=== PATIENT | female | born 1945 | race Native Hawaiian/Other Pacific Islander ===

== ENCOUNTER 2017-06-30 10:49 | Outpatient (CLI) | payer OTHER | END 2017-06-30 11:50 | disposition home or self-care (01) | LOC: RAD 10:49 | DX: M79.604 Pain in right leg (principal); R22.41 Localized swelling, mass and lump, right lower limb ==

== ENCOUNTER 2021-11-14 12:33 | Outpatient (CLI) | payer OTHER | END 2021-11-14 19:21 | disposition home or self-care (01) | LOC: RAD 12:33 | PROVIDERS: ATTEND Specialist | DX: Z13.820 Encounter for screening for osteoporosis (principal); N95.1 Menopausal and female climacteric states; N95.8 Other specified menopausal and perimenopausal disorders ==

== ENCOUNTER 2021-12-03 11:53 | Outpatient (CLI) | payer OTHER ==
[~2021-12-03] VITALS: Ht 149.9 cm; Wt 46.7 kg
== END 2021-12-03 19:12 | disposition home or self-care (01) ==
LOC: INF 11:53
PROVIDERS: ATTEND Internal Medicine Endocrinology, Diabetes & Metabolism
DX: M81.0 Age-related osteoporosis without current pathological fracture (principal)
CPT/HCPCS: 36415; 82310; 96372; J0897